=== PATIENT | female | born 1940 | race Two or more races ===

== ENCOUNTER 2022-10-05 07:30 | Inpatient (IN) | payer OTHER ==
[~2022-10-05] VITALS: Ht 172.7 cm; Wt 66.7 kg
[2022-10-05] MEDS ORDERED: TOPROL XL50 M1 PO (09:33)
[2022-10-05] MEDS ORDERED: COZAAR25 MG PO (09:34)
[2022-10-10] MEDS ORDERED: ROSUVASTATIN CA20 MG (08:07)
[2022-10-10] MEDS ORDERED: METOPROLOL SUCC50 MG (08:07)
[2022-10-11] MEDS ORDERED: ENDOCET 2.5-321 EACH PO (07:29)
[2022-10-11] MEDS ORDERED: INTEGRA PLUS C1 EACH PO (07:29)
[2022-10-11] MEDS ORDERED: BACTRIM DS TAB1 EACH PO (07:29)
== END 2022-10-11 11:15 | disposition home or self-care (01) | DRG 483 ==
LOC: O/R 10-10 05:46 → SURG 10-10 05:46 → SURH 10-10 07:00 → SURG 10-10 11:08
PROVIDERS: ADMIT Orthopaedic Surgery Sports Medicine; ATTEND Orthopaedic Surgery Sports Medicine
PROC: 0LS30ZZ Reposition Right Upper Arm Tendon, Open Approach (ICD-10-PCS; 2022-10-10)
PROC: 0PUC0JZ Supplement Right Humeral Head with Synthetic Substitute, Open Approach (ICD-10-PCS; 2022-10-10)
PROC: 0RRJ0JZ Replacement of Right Shoulder Joint with Synthetic Substitute, Open Approach (ICD-10-PCS; principal; 2022-10-10 07:00)
DX: M19.011 Primary osteoarthritis, right shoulder (principal); Z20.822 Contact with and (suspected) exposure to COVID-19

== ENCOUNTER 2024-05-27 07:15 | Inpatient (IN) | payer OTHER ==
[~2024-05-27] VITALS: Ht 167.6 cm; Wt 68.0 kg
[~2024-05-27 07:15] MED LIST: BACTRIM DS TAB1 EACH PO; COZAAR25 MG PO; ENDOCET 2.5-321 EACH PO; INTEGRA PLUS C1 EACH PO; METOPROLOL SUCC50 MG; ROSUVASTATIN CA20 MG; TOPROL XL50 M1 PO
[2024-05-27 08:21] LABS: HEMOGLOBIN 11.2 g/dL (12.0-15.00); MEAN CELL VOLUME 87.6 fL (80.00-100.00); MEAN CORPUSCULAR HEMOGLOBIN 29.7 pg (27.00-32.0); MEAN CORPUSCULAR HGB CONC 33.9 g/dl (32.0-36.0); PLATELET COUNT 282 K/uL (150-450); RED BLOOD COUNT 3.76 M/uL (4.00-6.00); RED CELL DISTRIBUTION WIDTH 13.4 % (11.5-14.5)
[2024-05-27 08:24] LABS: URINE APPEARANCE Clear; URINE BILIRRUBIN Negative (NEGATIVE); URINE BLOOD Trace; URINE COLOR Yellow; URINE GLUCOSE Negative (NEGATIVE); URINE KETONE Negative (NEGATIVE); URINE LEUKOCYTE Moderate; URINE NITRATE Negative; URINE PROTEIN Negative (NEGATIVE); URINE UROBILINOGEN 0.2 E.U./dl
[2024-05-27 08:29] LABS: URINE BACTERIA 889.4 uL (0.0-1933); URINE EPITHELIAL CELLS 22.7 uL (0.0-38.8); URINE RBC 15.7 uL (0.0-20.8); URINE WBC 113.6 uL (0.0-23.2)
[2024-05-27 09:07] LABS: INR 1.14; PARTIAL THROMBOPLASTIN TIME 27.5 SECONDS (22.0-34.0); PROTHROMBIN TIME 11.9 SECONDS (9.0-11.5)
[2024-05-27 09:20] LABS: ALBUMIN 3.4 gm/dL (3.4-5.0); BILIRUBIN TOTAL 0.57 mg/dL (0.3-1.2); CALCIUM 9.1 mg/dL (8.5-10.1); CREATININE SERUM 0.74 mg/dL (0.55-1.02); GFR 74.95; POTASSIUM 3.99 mEq/L (3.5-5.1); TOTAL PROTEIN 7.4 gm/dL (6.4-8.2)
[2024-06-04] MEDS ORDERED: CEFAZOLIN SODIUM 1,000 MG VIAL ONE (08:32)
[2024-06-04] MEDS ORDERED: TRANEXAMIC ACID 100MG/1ML (1000MG) AMPUL IV ONE ×3 (08:33→12:45)
[2024-06-04] MEDS ORDERED: VANCOMYCIN HCL 1,000 MG VIAL ONE (10:09)
[2024-06-04] MEDS ORDERED: BUPIVACAINE HCL/Mpf 0.5% 10ML VIAL ONE (10:09)
[2024-06-04] MEDS ORDERED: KETOROLAC TROMETHAMINE 60 MG VIAL IM ONE (10:09)
[2024-06-04] MEDS ORDERED: LIDOCAINE HCL 1%/EPINEPHRINE 20ML VIAL IJ ONE (10:10)
[2024-06-04] MEDS ORDERED: POVIDONE-IODINE 118 ML BOTT TOP ONE (11:29)
[2024-06-04] MEDS ORDERED: SODIUM CHLORIDE 0.45 % 1,000 ML IV SCH (12:30)
[2024-06-04] MEDS ORDERED: ONDANSETRON HCL 2 MG/ML VIAL IV PRN (12:30)
[2024-06-04] MEDS ORDERED: MEPERIDINE HCL/PF 50 MG/ML VIAL IM SCH (13:00)
[2024-06-04] MEDS ORDERED: GABAPENTIN 300 MG CAPSULE PO SCH (17:00)
[2024-06-04] MEDS ORDERED: CEFAZOLIN SODIUM 1,000 MG VIAL IV SCH (17:00)
[2024-06-04] MEDS ORDERED: ACETAMINOPHEN 500 MG GEL..CAP PO SCH (18:00)
[2024-06-05 07:48] LABS: HEMATOCRIT 29.8 % (36.0-45.00); HEMOGLOBIN 10.1 g/dL (12.0-15.00); MEAN CELL VOLUME 89.7 fL (80.00-100.00); MEAN CORPUSCULAR HEMOGLOBIN 30.6 pg (27.00-32.0); MEAN CORPUSCULAR HGB CONC 34.1 g/dl (32.0-36.0); PLATELET COUNT 205 K/uL (150-450); RED BLOOD COUNT 3.32 M/uL (4.00-6.00); RED CELL DISTRIBUTION WIDTH 13.4 % (11.5-14.5)
[2024-06-05] MEDS ORDERED: LOSARTAN POTASSIUM 25 MG TABLET PO SCH (09:00)
[2024-06-05] MEDS ORDERED: METOPROLOL SUCCINATE 50 MG TAB.SR.24H PO SCH (09:00)
[2024-06-05] MEDS ORDERED: APIXABAN 2.5 MG TABLET PO SCH (09:00)
[2024-06-05] MEDS ORDERED: SENNOSIDES 1 TAB TABLET PO SCH (09:00)
[2024-06-06 06:49] LABS: HEMATOCRIT 27.6 % (36.0-45.00); HEMOGLOBIN 9.5 g/dL (12.0-15.00); MEAN CELL VOLUME 88.3 fL (80.00-100.00); MEAN CORPUSCULAR HEMOGLOBIN 30.3 pg (27.00-32.0); MEAN CORPUSCULAR HGB CONC 34.3 g/dl (32.0-36.0); PLATELET COUNT 196 K/uL (150-450); RED BLOOD COUNT 3.13 M/uL (4.00-6.00); RED CELL DISTRIBUTION WIDTH 13.4 % (11.5-14.5)
[2024-06-06] MEDS ORDERED: IRON FUM,PS/FOLIC ACID/VITC/B3 1 CAP CAPSULE PO SCH (09:00)
[2024-06-06] MEDS ORDERED: LACTULOSE 20 G/30 ML BLIST.PACK PO STA (13:07)
[2024-06-06] MEDS ORDERED: MAGNESIUM HYDROXIDE 30 ML BLIST.PACK PO STA (13:07)
[2024-06-06] MEDS ORDERED: MINERAL OIL 30 ML BLIST.PACK PO STA (13:07)
[2024-06-06] MEDS ORDERED: DUI500 PO (16:38)
[2024-06-06] MEDS ORDERED: PERCOCET 5-3251 EACH PO (16:38)
[2024-06-06] MEDS ORDERED: ELIQUIS2.5 MG PO (16:38)
== END 2024-06-06 16:45 | disposition home or self-care (01) | DRG 470 ==
LOC: O/R 06-04 06:15 → SURG 06-04 06:15 → SURH 06-04 07:15 → SURG 06-04 14:20
PROVIDERS: ADMIT Orthopaedic Surgery; ATTEND Orthopaedic Surgery
PROC: 0SUD07Z Supplement Left Knee Joint with Autologous Tissue Substitute, Open Approach (ICD-10-PCS; 2024-06-04)
PROC: 0SRD0J9 Replacement of Left Knee Joint with Synthetic Substitute, Cemented, Open Approach (ICD-10-PCS; principal; 2024-06-04 12:30)
DX: M17.12 Unilateral primary osteoarthritis, left knee (principal); M22.12 Recurrent subluxation of patella, left knee; M81.0 Age-related osteoporosis without current pathological fracture; G25.1 Drug-induced tremor; T42.6X5A Adverse effect of other antiepileptic and sedative-hypnotic drugs, initial encounter; Y92.230 Patient room in hospital as the place of occurrence of the external cause; I10 Essential (primary) hypertension; Z74.09 Other reduced mobility

== ENCOUNTER 2024-07-16 12:41 | Emergency (ER) | payer OTHER ==
[~2024-07-16] VITALS: Ht 162.6 cm; Wt 68.0 kg
[~2024-07-16 12:41] MED LIST changes: +DUI500 PO; +ELIQUIS2.5 MG PO; +PERCOCET 5-3251 EACH PO
== END 2024-07-16 19:08 | disposition home or self-care (01) ==
LOC: ER 12:43
DX: S09.90XA Unspecified injury of head, initial encounter (principal); S70.02XA Contusion of left hip, initial encounter; W18.30XA Fall on same level, unspecified, initial encounter; Y93.9 Activity, unspecified; Y92.9 Unspecified place or not applicable; Y99.9 Unspecified external cause status